=== PATIENT | female | born 1985 | race Caucasian/White ===

== ENCOUNTER 2020-03-11 18:16 | Emergency (ER) | payer MEDICAID, SELFPAY ==
[~2020-03-11] VITALS: Ht 165.1 cm; Wt 60.8 kg
[2020-03-11 20:48] VITALS: BP 121/78
--- NOTE | 2020-03-11 22:06 | NUR ---
PA AT BEDSIDE FOR EVAL. PLACED VITALS SIGNS MONITOR, SAFETY PRECAUTIONS IN PLACE.
== END 2020-03-11 23:01 | disposition home or self-care (01) ==
LOC: ED 22:00
DX: L03.116 Cellulitis of left lower limb (principal)
CPT/HCPCS: 99283

== ENCOUNTER 2020-07-25 23:41 | Inpatient (IN) | payer MEDICAID ==
[~2020-07-25] VITALS: Ht 165.1 cm; Wt 66.1 kg
[2020-07-26] MEDS ORDERED: ONDANSETRON 2MG/ML, 2ML IVPush ONE (02:30)
[2020-07-26] MEDS ORDERED: VANCOMYCIN 1,500 MG in SODIUM CHLORIDE 0.9% 250 ML IV ONE (02:30)
[2020-07-26] MEDS ORDERED: SODIUM CHLORIDE 0.9% 1,000ML IVBOLUS ONE (02:30)
[2020-07-26] MEDS ORDERED: CEFTRIAXONE PMX 1GM/50ML 50 ML IV ONE (02:30)
[2020-07-26] MEDS ORDERED: MORPHINE SULFATE 4 MG/ML, 1ML IVPush PRN (02:30)
[2020-07-26] MEDS ORDERED: VANCOMYCIN PER PHARMACY MC PRN ×2 (02:30→04:30)
[2020-07-26] MEDS ORDERED: DIPHENHYDRAMINE 50 MG/ML, 1ML IVPush ONE (02:30)
--- NOTE | 2020-07-26 02:30 | NUR ---
LATE ENTRY D/T PT CARE: PT CAME INTO ED DUE TO ABCESS, STATES IT HAS BEEN THERE FOR A BIT HOWEVER NOW SHE HAS A FEVER AND KNEW SHE SHOULD COME IN. PT IS NAD, VSS. CMS INTACT, SENSATION INTACT, LARGE REDDENED ABCESSED AREA NOTED. PT GROSS NEURO INTACT. WCTM. PT PLACED ON SPO2/BP MONITOR.
[2020-07-26] MEDS ORDERED: DIPHENHYDRAMINE 50 MG/ML, 1ML ONE (02:32)
[2020-07-26] MEDS ORDERED: ONDANSETRON 2MG/ML, 2ML ONE ×2 (02:32→08:42)
[2020-07-26] MEDS ORDERED: MORPHINE SULFATE 4 MG/ML, 1ML ONE (02:32)
[2020-07-26 02:52] LABS: BASOPHILS # (AUTO) 0.03 x10^3/uL (0-0.1); BASOPHILS % (AUTO) 0 % (0-1); EOSINOPHILS # (AUTO) 0.09 x10^3/uL (0-0.4); EOSINOPHILS % (AUTO) 1 % (1-7); LYMPHOCYTES # (AUTO) 1.73 x10^3/uL (1-3.4); LYMPHOCYTES % (AUTO) 22 % (22-44); MD NO; MEAN CORPUSCULAR HEMOGLOBIN 28.7 pg (27.0-34.8); MEAN CORPUSCULAR HGB CONC 32.3 g/dL (32.4-35.8); MEAN CORPUSCULAR VOLUME 88.7 fL (80-100); MEAN PLATELET VOLUME 8.4 fL (7.4-10.4); MONOCYTES # (AUTO) 0.47 x10^3/uL (0.2-0.8); MONOCYTES % (AUTO) 6 % (2-9); NEUTROPHILS # (AUTO) 5.44 x10^3/uL (1.8-6.8); NEUTROPHILS % (AUTO) 70 % (42-75); PLATELET COUNT 269 x10^3/uL (130-400); RED CELL DISTRIBUTION WIDTH 13.4 % (9.6-15.2)
[2020-07-26 03:03] LABS: ALBUMIN 3.3 g/dL (3.4-5.0); ANION GAP 6 mmol/L (5-15); CALCIUM 8.6 mg/dL (8.5-10.1); CHLORIDE 104 mmol/L (98-107); CREATININE 0.72 mg/dL (0.55-1.02)
--- NOTE | 2020-07-26 03:30 | NUR ---
IV START, PT TOLERATE WELL, CT AWARE AND COMING TO GET PT.
--- NOTE | 2020-07-26 03:33 | NUR ---
PT NAD, SKIN DRY AND WARM, MEDICATED PER MAR, NO CHANGE IN CONDITION, WCTM. PT TO CT VIA KATHRYN.
--- NOTE | 2020-07-26 04:18 | NUR ---
PT RESTING ON GERARD PERALTA, VSS, WCTM. PT TO BE CONSULTED ON BY SURGERY.
[2020-07-26] MEDS ORDERED: CEFTRIAXONE PMX 1GM/50ML 50 ML ONE (04:22)
[2020-07-26] MEDS ORDERED: SODIUM CHLORIDE 0.9% 1,000 ML IV SCH (04:26)
[2020-07-26] MEDS ORDERED: ACETAMINOPHEN 325 MG TABLET PO PRN (04:30)
[2020-07-26] MEDS ORDERED: morphine SULFATE 10 MG/ML, 1ML IVPush PRN (04:30)
[2020-07-26] MEDS ORDERED: DOCUSATE 100 MG CAPSULE PO PRN (04:30)
[2020-07-26] MEDS ORDERED: ONDANSETRON 2MG/ML, 2ML IVPush PRN ×2 (04:30→09:00)
[2020-07-26] MEDS ORDERED: HEPARIN 5,000 UNITS/ML, 1ML ONE (04:44)
[2020-07-26] MEDS: HEPARIN 5,000 UNITS/ML, 1ML SQ SCH ×3 (04:49→23:05)
[2020-07-26 05:10] VITALS: BP 85/59
[2020-07-26] MEDS ORDERED: PHARMACOKINETIC MONITORING MC PRN (05:30)
[2020-07-26] MEDS ORDERED: NICOTINE 14MG/24 HR PATCH.TD24 TD ONE (06:00)
[2020-07-26] MEDS ORDERED: OMNIPAQUE 350 MG/ML, 150 ML BOTTLE ONE (06:13)
[2020-07-26] MEDS: AMPICILLIN/SULBACTAM 1,500 MG in SODIUM CHLORIDE 0.9% 50 ML IV SCH ×4 (06:51→23:05)
[2020-07-26 06:52] VITALS: BP 90/59
[2020-07-26] MEDS ORDERED: MIDAZOLAM 1 MG/ML, 2ML ONE (08:36)
[2020-07-26] MEDS ORDERED: FENTANYL PF 100 MCG/2ML ONE (08:37)
[2020-07-26] MEDS ORDERED: PROPOFOL 10 MG/ML, 20ML ONE (08:42)
[2020-07-26] MEDS ORDERED: CEFAZOLIN 1,000 MG ONE (08:42)
[2020-07-26] MEDS ORDERED: ROCURONIUM 10 MG/ML,10ML ONE (08:42)
[2020-07-26] MEDS ORDERED: SUCCINYLCHOLINE 20 MG/ML, 10ML ONE (08:42)
[2020-07-26] MEDS ORDERED: DEXAMETHASONE 4 MG/ML, 1ML ONE (08:42)
[2020-07-26] MEDS ORDERED: MEPERIDINE/PF 25MG/0.5ML IVPush PRN (09:00)
[2020-07-26] MEDS ORDERED: hydrALAzine 20 MG/ML, 1ML IV PRN (09:00)
[2020-07-26] MEDS ORDERED: KETOROLAC 30 MG/1 ML IV PRN (09:00)
[2020-07-26] MEDS ORDERED: DIAZEPAM 5 MG/ML, 2ML IV PRN ×2 (09:00)
[2020-07-26] MEDS ORDERED: OXYcodone 5 MG/5 ML ORAL.SOL UDC PO PRN (09:00)
[2020-07-26] MEDS ORDERED: FENTANYL PF 100 MCG/2ML IV PRN (09:00)
[2020-07-26] MEDS ORDERED: PROMETHAZINE 25 MG/ML, 1ML IV PRN (09:00)
[2020-07-26] MEDS ORDERED: METOCLOPRAMIDE 5 MG/ML, 2ML IV PRN (09:00)
[2020-07-26] MEDS ORDERED: ALBUTEROL SULFATE 2.5 MG/3 ML NPPB PRN (09:00)
[2020-07-26] MEDS ORDERED: LABETALOL 5MG/ML, 20ML IV PRN (09:00)
[2020-07-26] MEDS ORDERED: HYDROmorphone 1 MG/ML, 1ML INJ IV PRN (09:00)
[2020-07-26] MEDS: SODIUM CHLORIDE 0.9% 1,000 ML IV SCH ×2 (11:28→21:38)
[2020-07-26 13:07] VITALS: BP 90/62
[2020-07-26] MEDS ORDERED: SODIUM CHLORIDE 0.9%, 500ML IVBOLUS ONE (14:30)
[2020-07-26] MEDS: VANCOMYCIN PMX 1GM/200ML 200 ML IV SCH (15:42)
[2020-07-26 16:12] LABS: AMPHETAMINE SCREEN, URINE Positive (Negative); BARBITURATE SCREEN, URINE Negative (Negative); BENZODIAZEPINE SCREEN, URINE Positive (Negative); CANNABINOID SCREEN, URINE Negative (Negative); COCAINE SCREEN, URINE Negative (Negative); METHADONE SCREEN, URINE Negative (Negative); OPIATE SCREEN, URINE Positive (Negative)
[2020-07-26] MEDS: POTASSIUM CHLORIDE 20 MEQ TAB.ER.PRT PO SCH (17:29)
[2020-07-26 18:33] VITALS: BP 96/60
[2020-07-26] MEDS: HYDROcodone/APAP 5/325 TABLET PO PRN (20:34)
[2020-07-27 02:31] VITALS: BP 95/54
[2020-07-27] MEDS: VANCOMYCIN PMX 1GM/200ML 200 ML IV SCH (03:32)
[2020-07-27 05:16] LABS: BASOPHILS # (AUTO) 0.02 x10^3/uL (0-0.1); BASOPHILS % (AUTO) 0 % (0-1); EOSINOPHILS # (AUTO) 0.13 x10^3/uL (0-0.4); EOSINOPHILS % (AUTO) 3 % (1-7); LYMPHOCYTES # (AUTO) 1.59 x10^3/uL (1-3.4); LYMPHOCYTES % (AUTO) 31 % (22-44); MD NO; MEAN CORPUSCULAR HEMOGLOBIN 28.9 pg (27.0-34.8); MEAN CORPUSCULAR HGB CONC 32.7 g/dL (32.4-35.8); MEAN CORPUSCULAR VOLUME 88.4 fL (80-100); MEAN PLATELET VOLUME 8.8 fL (7.4-10.4); MONOCYTES # (AUTO) 0.35 x10^3/uL (0.2-0.8); MONOCYTES % (AUTO) 7 % (2-9); NEUTROPHILS # (AUTO) 3.06 x10^3/uL (1.8-6.8); NEUTROPHILS % (AUTO) 59 % (42-75); PLATELET COUNT 215 x10^3/uL (130-400); RED BLOOD COUNT 3.44 x10^6/uL (3.82-5.3); RED CELL DISTRIBUTION WIDTH 13.3 % (9.6-15.2)
[2020-07-27 05:22] LABS: ANION GAP 4 mmol/L (5-15); CALCIUM 7.4 mg/dL (8.5-10.1); CHLORIDE 111 mmol/L (98-107); CREATININE 0.47 mg/dL (0.55-1.02)
[2020-07-27] MEDS: AMPICILLIN/SULBACTAM 1,500 MG in SODIUM CHLORIDE 0.9% 50 ML IV SCH (05:41)
[2020-07-27] MEDS: SODIUM CHLORIDE 0.9% 1,000 ML IV SCH (05:41)
[2020-07-27] MEDS: HEPARIN 5,000 UNITS/ML, 1ML SQ SCH (06:38)
[2020-07-27 07:43] VITALS: BP 101/56
[2020-07-27] MEDS: POTASSIUM CHLORIDE 20 MEQ TAB.ER.PRT PO SCH (08:56)
[2020-07-27] MEDS: HYDROcodone/APAP 5/325 TABLET PO PRN (09:21)
[2020-07-27] MEDS ORDERED: SODIUM CHLORIDE 0.9% 1,000 ML IV SCH (11:30)
== END 2020-07-27 10:30 | disposition left against medical advice (07) | DRG 603 ==
LOC: ED 07-26 04:34 → EDIP 07-26 04:45 → 4NE 07-26 05:10
PROVIDERS: ADMIT Family Medicine; ATTEND Internal Medicine
PROC: 0Y900ZZ Drainage of Right Buttock, Open Approach (ICD-10-PCS; principal; 2020-07-26 15:15)
DX: L03.115 Cellulitis of right lower limb (principal); R65.10 Systemic inflammatory response syndrome (SIRS) of non-infectious origin without acute organ dysfunction; L02.415 Cutaneous abscess of right lower limb; F17.200 Nicotine dependence, unspecified, uncomplicated; F11.10 Opioid abuse, uncomplicated; E87.6 Hypokalemia; Z86.718 Personal history of other venous thrombosis and embolism; Z53.29 Procedure and treatment not carried out because of patient's decision for other reasons; Z20.828 Contact with and (suspected) exposure to other viral communicable diseases
CPT/HCPCS: 36415; 80048; 80307; 82040; 83605; 83735; 84703; 85025; 87070; 87075; 87186; 87205; 87635; 93005; 93970; G0378; J0690; J0696; J1100; J1644; J2250; J2405; J2704; J3010; J3370; Q9967; J0295; J0330; J1200; J2270; J7030; J7040; J7050

== ENCOUNTER 2021-02-01 17:09 | Emergency (ER) | payer BC, MEDICAID ==
[~2021-02-01] VITALS: Ht 165.1 cm; Wt 61.0 kg
[2021-02-01 17:13] VITALS: BP 118/82
== END 2021-02-01 17:55 | disposition home or self-care (01) ==
LOC: ED 17:48
DX: H00.011 Hordeolum externum right upper eyelid (principal); L03.213 Periorbital cellulitis; Z88.8 Allergy status to other drugs, medicaments and biological substances
CPT/HCPCS: 99283

== ENCOUNTER 2021-07-03 02:05 | Emergency (ER) | payer BC, MEDICAID ==
[~2021-07-03] VITALS: Ht 165.1 cm; Wt 58.8 kg
[2021-07-03 02:13] VITALS: BP 96/60
[2021-07-03 02:42] LABS: BASOPHILS % (AUTO) 0 % (0-1); EOSINOPHILS % (AUTO) 0 % (1-7); LYMPHOCYTES % (AUTO) 10 % (22-44); MEAN CORPUSCULAR HEMOGLOBIN 29.7 pg (27.0-34.8); MEAN CORPUSCULAR HGB CONC 33.8 g/dL (32.4-35.8); MEAN PLATELET VOLUME 9.4 fL (7.4-10.4); MONOCYTES % (AUTO) 5 % (2-9); NEUTROPHILS % (AUTO) 85 % (42-75); PLATELET COUNT 238 x10^3/uL (130-400); RED BLOOD COUNT 4.55 x10^6/uL (3.82-5.3)
[2021-07-03 02:43] LABS: ALANINE AMINOTRANSFERASE 22 U/L (12-78); ALBUMIN 3.2 g/dL (3.4-5.0); ANION GAP 6 mmol/L (5-15); CHLORIDE 98 mmol/L (98-107); CREATININE 0.77 mg/dL (0.55-1.02)
[2021-07-03 02:48] LABS: ALKALINE PHOSPHATASE 101 U/L (45-117); BILIRUBIN,TOTAL 0.9 mg/dL (0.2-1.0); TOTAL PROTEIN 8.3 g/dL (6.4-8.2)
[2021-07-03 02:56] LABS: MICROSCOPIC INDICATED
[2021-07-03] MEDS ORDERED: SODIUM CHLORIDE 0.9% 1,000ML IVBOLUS ONE (03:30)
[2021-07-03] MEDS ORDERED: CEFTRIAXONE 1,000 MG in DEXTROSE 5% 50 ML IVPB ONE (03:30)
--- NOTE | 2021-07-03 03:47 | NUR ---
PT LEFT AMA. AMA FORM SIGNED. PT REFUSING TO WAIT TO SEE
== END 2021-07-03 03:49 | disposition left against medical advice (07) ==
LOC: ED 02:30
DX: R10.9 Unspecified abdominal pain (principal); R30.0 Dysuria
CPT/HCPCS: 36415; 80053; 81001; 83605; 83690; 84703; 85025; 87040; 87077; 87086; 87186; 99283